=== PATIENT | female | born 1965 | race Caucasian/White ===

== ENCOUNTER → 2022-01-24 | Outpatient (CLI) | payer BC ==
--- NOTE | 2022-01-25 06:38 | MR ---
EXAMINATION TYPE: MR lumbar spine wo con DATE OF EXAM: 01/24/2022 COMPARISON: NONE HISTORY: Low back pain, numbness and tingling in extremities. Radiculopathy per order. TECHNIQUE: Multiplanar, multisequence imaging of the lumbar spine is performed without IV contrast. FINDINGS: Sagittal images of the lumbar spine show vertebral body heights to appear satisfactory. Sli ght grade 1 retrolisthesis L2 on L3 and L3 on L4. Multilevel disc desiccation. Mild to moderate disc space narrowing L2-L3 level. Mild disc space narrowing L3-L4 level. The conus medullaris is normal i n position and signal ending inferior L1 level. The bone marrow signal intensity is within normal li mits. Axial images at T12-L1 show tiny left paracentral disc protrusion minimally effacing the anterolatera l thecal sac. Axial images at L1-L2 level show mild broad disc bulge mildly effacing anterior thecal sac. Axial images at L2-L3 levels with spondylolisthesis with mild to moderate broad disc bulge effacing t he anterior thecal sac. There is mild facet arthropathy and ligamentum flavum hypertrophy effacing th e posterolateral thecal sac. Mild left-sided neural foraminal narrowing is seen. Axial images at L3-L4 level shows broad-based left paracentral disc protrusion effacing the anterolat eral thecal sac. There is mild facet nephropathy and ligamentum flavum hypertrophy. There is mild lef t-sided anterior inferior neural foraminal narrowing. Axial images at L4-L5 level shows [id number] facet arthropathy and ligamentum flavum hypertroph y effacing posterior lateral thecal sac. There is mild to moderate left greater than right bilateral neural foraminal narrowing. No significant disc herniation. Axial images at L5-S1 level show moderate facet arthropathy bilaterally. Spinal canal is preserved. B ilateral neural foramina are patent. Paraspinal muscle bulk is maintained. IMPRESSION: Multilevel spondylolisthesis and degenerative change in the lumbar spine as detailed temi collins
== END | disposition home or self-care (01) ==
LOC: RADMRIMAIN 15:50
PROVIDERS: ATTEND Family Medicine
DX: M47.27 Other spondylosis with radiculopathy, lumbosacral region (principal); M43.16 Spondylolisthesis, lumbar region; M51.16 Intervertebral disc disorders with radiculopathy, lumbar region; M99.73 Connective tissue and disc stenosis of intervertebral foramina of lumbar region
CPT/HCPCS: 72148

== ENCOUNTER → 2022-02-13 | Outpatient (CLI) | payer BC ==
--- NOTE | 2022-02-14 19:20 | MM ---
Reason for Exam: Screening (asymptomatic). Last mammogram was performed 6 year(s) and 1 month(s) ago. Patient History: Menarche at age 10. First Full-Term at age 20. Postmenopausal. Risk Values: Darling 5 year model risk: 1.2%. NCI Lifetime model risk: 6.9%. Prior Study Comparison: 02/22/2011 Right Diagnostic Mammogram, [facility]. 12/19/2015 Bilateral Screening Mammogram, [facility]. 12/22/2015 Right Diagnostic Mammogram, [facility]. Tissue Density: The breast tissue is heterogeneously dense. This may lower the sensitivity of mammography. Findings: Analyzed By CAD. Benign bilateral oil cyst calcifications. There is no suspicious group of microcalcifications or new suspicious mass in either breast. Overall Assessment: Negative, BI-RAD 1 Management: Screening Mammogram of both breasts in 1 year. 1. Patient should continue monthly self breast exams. 2. A clinical breast exam by your physician is recommended on an annual basis. 3. This exam should not preclude additional follow-up of suspicious palpable abnormalities. Electronically signed and approved by: Venice Spear M.D. Radiologist
== END | disposition home or self-care (01) ==
LOC: RADMAMWWP 15:32
PROVIDERS: ATTEND Family Medicine
DX: Z12.31 Encounter for screening mammogram for malignant neoplasm of breast (principal); Z78.0 Asymptomatic menopausal state
CPT/HCPCS: 77063; 77067

== ENCOUNTER 2022-06-12 11:12 | Day surgery (SDC) | payer BC ==
[~2022-06-12 11:12] MED LIST: LACTATED RINGERS 1,000 ML IV SCH
[2022-06-12 11:37] VITALS: RESP 16; TEMP 98.2
[2022-06-12] MEDS ORDERED: PROPOFOL 10 MG/ML 20 ML VIAL IV ONE (12:54)
--- NOTE | 2022-06-12 13:10 | P.PCN ---
Date of Procedure: 06/12/22 Procedure(s) Performed: BRIEF HISTORY: Patient is a 57-year-old pleasant white female scheduled for an elective colonoscopy as a part of screening for colon cancer/positive cologuad. PROCEDURE PERFORMED: Colonoscopy with snare polypectomy. PREOPERATIVE DIAGNOSIS: Screening for colon cancer/positive cologuard. IV sedation per Anesthesia. PROCEDURE: After informed consent was obtained, the patient, was brought into the endoscopy unit. IV sedation was administered by Anesthesia under continuous monitoring. Digital rectal examination was normal. Initially the Olympus CF-160 flexible video colonoscope was then inserted in the rectum, gradually advanced into the cecum without any difficulty. Careful examination was performed as the scope was gradually being withdrawn. Ileocecal valve and the appendiceal orifice were visualized and appeared normal. Prep was excellent. Mucosa of the cecum 2 polyps measuring 1 cm in size both of which were removed by snare polypectomy. Rest of the, ascending colon, transverse colon, descending colon, sigmoid colon, and rectum appeared normal. Retroflexion was performed in the rectum and no lesions were seen. The patient tolerated the procedure well. IMPRESSION: 1 cm 2 sessile cecal polyp status post polypectomy Rest of the colon appeared normal RECOMMENDATIONS: Findings of this examination were discussed with the patient as well as her family.. She was advised to follow with the biopsy results. If the biopsy result she can have a repeat colonoscopy in 3 years.
[2022-06-12 13:36] VITALS: BP 107/75; PULSE 84
== END 2022-06-12 13:51 | disposition home or self-care (01) ==
LOC: ORWHC2ENDO 11:12
PROVIDERS: ATTEND Internal Medicine Gastroenterology
DX: D12.0 Benign neoplasm of cecum (principal); I10 Essential (primary) hypertension; E78.5 Hyperlipidemia, unspecified; F17.200 Nicotine dependence, unspecified, uncomplicated; Z79.899 Other long term (current) drug therapy
CPT/HCPCS: 88305; 45385; J2704

== ENCOUNTER → 2023-03-21 | Outpatient (CLI) | payer BC ==
--- NOTE | 2023-03-21 13:02 | MM ---
Reason for Exam: Screening (asymptomatic). Last mammogram was performed 1 year(s) and 2 month(s) ago. Patient History: Menarche at age 10. First Full-Term at age 20. Postmenopausal. Risk Values: Darling 5 year model risk: 1.3%. NCI Lifetime model risk: 6.6%. Prior Study Comparison: 02/12/2011 Bilateral Screening Mammogram, [facility]. 02/22/2011 Right Diagnostic Mammogram, [facility]. 12/19/2015 Bilateral Screening Mammogram, [facility]. 12/22/2015 Right Diagnostic Mammogram, [facility]. 02/13/2022 Bilateral MG 3D screening mammo w/cad, [facility]. Tissue Density: The breast tissue is heterogeneously dense. This may lower the sensitivity of mammography. Findings: Analyzed By CAD. There is no suspicious group of microcalcifications or new suspicious mass. Benign-appearing calcifications bilaterally. Overall Assessment: Benign, BI-RAD 2 Management: Screening Mammogram of both breasts in [address] [facility] will attempt to contact patient to return for supplemental views and ultrasound if indicated. Patient should continue monthly self-breast exams. A clinical breast exam by your physician is recommended on an annual basis. This exam should not preclude additional follow-up of suspicious palpable abnormalities. Note on Darling scores and lifetime risk: 1. A Darling score greater than 3% is considered moderate risk. If this is the case, consider specialist referral to assess eligibility for a risk reducing agent. 2. If overall lifetime risk for the development of breast cancer is 20% or higher, the patient may qualify for future screening with alternating mammogram and breast MRI. Electronically signed and approved by: Naresh Reese DO
== END | disposition home or self-care (01) ==
LOC: RADMAMWWP 12:26
PROVIDERS: ATTEND Family Medicine
DX: Z12.31 Encounter for screening mammogram for malignant neoplasm of breast (principal); Z78.0 Asymptomatic menopausal state
CPT/HCPCS: 77063; 77067